=== PATIENT | male | born 1930 | race Caucasian/White ===

== ENCOUNTER → 2016-09-10 | Outpatient (CLI) | payer OTHER | LOC: BHLMT 10:45 | PROVIDERS: ATTEND Internal Medicine Cardiovascular Disease | DX: I48.91 Unspecified atrial fibrillation (principal); I25.10 Atherosclerotic heart disease of native coronary artery without angina pectoris; I10 Essential (primary) hypertension | CPT/HCPCS: 93306-PO ==

== ENCOUNTER 2017-11-23 13:31 | Day surgery (SDC) | payer OTHER ==
--- NOTE | 2017-11-23 06:32 | PDHPUP ---
History & Physical Update H&P update statement: This history and physical update is based on an assessment of the patient which was completed after admission or registration (within 24 hours), but prior to the surgery/procedure. H&P update: H&P reviewed & patient examined, no change in patient's condition since H&P completed
[2017-11-23] MEDS ORDERED: LIDOCAINE 1% 2 ML INJ ID PRN (13:47)
[2017-11-23] MEDS ORDERED: LR 1,000 ML IV ONE (13:47)
[2017-11-23] MEDS ORDERED: BUPIVACAINE/EPI 0.5% 30 ML SDV ONE (13:56)
[2017-11-23] MEDS ORDERED: LIDO/EPI 1% **for epidural** 30 ML SDV ONE (13:57)
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
[2017-11-23] MEDS ORDERED: PROPOFOL/EMULSION 500 MG/50 ML BOTTLE IV ONE (14:29)
[2017-11-23] MEDS ORDERED: fentaNYL 100 MCG/2 ML INJ ONE (14:29)
[2017-11-23] MEDS ORDERED: METOCLOPRAMIDE 10 MG/2 ML VIAL ONE (14:30)
[2017-11-23] MEDS ORDERED: ONDANSETRON 4 MG/2 ML VIAL ONE (14:30)
[2017-11-23] MEDS ORDERED: MIDAZOLAM 2 MG/2 ML VIAL ONE (14:32)
[2017-11-23] MEDS ORDERED: KETOROLAC 30 MG/1 ML SDV ONE (14:55)
--- NOTE | 2017-11-23 15:46 | POSTOPPROG ---
Post Op Note Date of Operation: 11/23/17 Surgeon: Eduardo Olivo Anesthesiologist: David Werner Anesthesia: IV Sedation Pre-op Diagnosis: RIH Post-op Diagnosis: Same Procedure: Open RIH with Marlex plug and patch Findings: Large indirect with attenuated floor Inf/Abcess present in the surg proc area at time of surgery?: No EBL: Minimal Specimen(s): none
[2017-11-23] MEDS ORDERED: PROMETHAZINE HCL 25 MG/ML INJ IVP PRN (15:47)
[2017-11-23] MEDS ORDERED: LR 500 ML IV PRN (15:47)
[2017-11-23] MEDS ORDERED: fentaNYL 100 MCG/2 ML INJ IVP PRN (15:47)
[2017-11-23] MEDS ORDERED: NALOXONE HCL 0.4 MG/ML INJ IVP PRN (15:47)
[2017-11-23] MEDS ORDERED: HYDROCODONE/APAP 5/325 TAB PO PRN (15:47)
--- NOTE | 2017-11-23 15:48 | POSTANESTH ---
Post Anesthetic Evaluation Cardiovascular Status: Similar to Pre-Op Cond Respiratory Status: Normal, Stable Level of Consciousness/Mental Status: Can Participate in Eval Pain Control: Adequate, Prn Tx Ordered Nausea/Vomiting Control: Adequate, Prn Tx Ordered Complications Possibly Related to Anesthesia: None Noted
[2017-11-23 16:07] VITALS: O2SAT 95
[2017-11-23 16:11] VITALS: TEMP 98.2
[2017-11-23 16:24] VITALS: BP 141/91; PULSE 93; RESP 14
--- NOTE | 2017-11-23 16:44 | GOP ---
[f rep st] OPERATIVE REPORT DATE OF OPERATION: 11/23/2017 SURGEON: Eduardo Olivo MD ANESTHESIA: MAC. ANESTHESIOLOGIST: Dr. Werner. PREOPERATIVE DIAGNOSIS: Right inguinal hernia. POSTOPERATIVE DIAGNOSIS: Right inguinal hernia. PROCEDURE PERFORMED: Open right inguinal herniorrhaphy with Marlex mesh plug and patch. FINDINGS: Indirect sac. INDICATIONS: 86-year-old male with a symptomatic right inguinal hernia. He is undergoing surgical repair at this time. He underwent a prior open appendectomy via an oblique right lower quadrant incision. Surgical risks and benefits were explained including bleeding, infection, recurrence, as well as nerve and/or testicle injury. All questions were answered. He desires to proceed. DESCRIPTION OF PROCEDURE: After monitored anesthesia was started, the right groin was infiltrated with 1% lidocaine and 0.5% Marcaine along the ilioinguinal nerve, as well as the oblique groin crease. An oblique incision was created through the pubic tubercle. Subcutaneous tissues were divided down to the external oblique fascia. This was a completely attenuated structure. The external oblique fascia was opened, allowing for the spermatic cord to circumferentially be encompassed. There was a large, chronic, indirect sac with omental fat. The sac and fat were cleared away from the cord structures and allowed to fall back into the abdominal cavity. The canal was plugged with an extra-large Marlex mesh plug and secured with multiple PDS sutures. The onlay patch was secured to the pubic tubercle and run to the shelving edge of the inguinal ligament and what was left of the conjoint tendon. There was significant scarring at that location, making for tissue dissection somewhat tedious. Excellent coverage of the inguinal floor was ultimately attained. Satisfactory hemostasis was assured. The external oblique fascia was closed with a running PDS suture. The wounds were closed in layers with absorbable sutures, followed by Dermabond. The patient was taken to Recovery uneventfully. /[id number]/MODL MTDD
== END 2017-11-23 17:31 | disposition home or self-care (01) ==
LOC: FSGY 13:31
PROVIDERS: ATTEND Surgery
PROC: 0YU50JZ Supplement Right Inguinal Region with Synthetic Substitute, Open Approach (ICD-10-PCS; principal; 2017-11-23 14:30)
DX: K40.90 Unilateral inguinal hernia, without obstruction or gangrene, not specified as recurrent (principal); I48.91 Unspecified atrial fibrillation; E78.5 Hyperlipidemia, unspecified; I10 Essential (primary) hypertension; I25.2 Old myocardial infarction; Z95.5 Presence of coronary angioplasty implant and graft; Z95.0 Presence of cardiac pacemaker; Z87.891 Personal history of nicotine dependence
CPT/HCPCS: C1781; J1885; J2250; J2405; J2704; J2765; J3010

== ENCOUNTER → 2018-05-18 | Outpatient (CLI) | payer OTHER | LOC: BHLMT 15:30 | PROVIDERS: ATTEND Internal Medicine Cardiovascular Disease | DX: I25.10 Atherosclerotic heart disease of native coronary artery without angina pectoris (principal); I65.21 Occlusion and stenosis of right carotid artery | CPT/HCPCS: 93880-PO ==

== ENCOUNTER → 2018-12-09 | Outpatient (CLI) | payer OTHER | LOC: BHLMT 09:15 | PROVIDERS: ATTEND Internal Medicine Interventional Cardiology | DX: I48.92 Unspecified atrial flutter (principal); I25.10 Atherosclerotic heart disease of native coronary artery without angina pectoris; I34.0 Nonrheumatic mitral (valve) insufficiency | CPT/HCPCS: 93306-PO ==